=== PATIENT | female | born 1995 | race Hispanic/Latino ===

== ENCOUNTER 2018-12-13 14:46 | Inpatient (IN) | payer MEDICAID | END 2018-12-23 12:35 | disposition home or self-care (01) | LOC: LDH 14:46 → WSH 12-22 11:15 | PROC: 0W8NXZZ Division of Female Perineum, External Approach (ICD-10-PCS; principal; ~2018-12-13) | PROC: 10E0XZZ Delivery of Products of Conception, External Approach (ICD-10-PCS; ~2018-12-13) | DX: O80 Encounter for full-term uncomplicated delivery (principal); Z37.0 Single live birth ==

== ENCOUNTER 2021-01-15 20:35 | Emergency (ER) | payer MEDICAID ==
[~2021-01-15 20:35] MED LIST: PNV#1CAP15 PO
[2021-01-15] MEDS ORDERED: ONDANSETRON HCL 4 MG/2 ML VIAL ONE (20:43)
[2021-01-15] MEDS ORDERED: LIDOCAINE 5% TOPICAL PATCH TP ONE (20:43)
[2021-01-15] MEDS ORDERED: KETOROLAC TROMETHAMINE 30MG/ML ONE (20:43)
== END 2021-01-15 21:42 | disposition home or self-care (01) ==
LOC: EDH 20:35
DX: M54.6 Pain in thoracic spine (principal); Z98.51 Tubal ligation status; W22.8XXA Striking against or struck by other objects, initial encounter; Y93.89 Activity, other specified; Y92.89 Other specified places as the place of occurrence of the external cause; Y99.8 Other external cause status
CPT/HCPCS: 71045; 96374; 96375; 99284; J1885; J2405